=== PATIENT | female | born 1960 | race Caucasian/White ===

== ENCOUNTER 2017-11-04 05:05 | Emergency (ER) | payer BC, OTHER ==
[~2017-11-04] VITALS: Ht 162.6 cm; Wt 64.4 kg
[~2017-11-04 05:05] MED LIST: CIPR500T94 PO; LEVO25TA4 PO; LEVO88TA4 PO; METR70GE2 VG; OMEP20CA9 PO
--- NOTE | 2017-11-04 05:37 | PHYS DOC ---
Text Departure Time of Disposition: 07:30 (LISA DASH MD) Disposition: 01 HOME, SELF-CARE Condition: IMPROVED Patient Instructions: Abdominal Pain, Constipation, Adult Prescriptions Zofran, Ibuprofen (LISA DASH MD) General Chief Complaint: ABDOMINAL PAIN Stated Complaint: ABDOMINAL PAIN Time Seen by MD: 05:16 Source: patient, old records Exam Limitations: no limitations Problems: (GURINDER CONNELLY DO) Time Seen by MD: 06:17 Problems: (LISA DASH MD) History of Present Illness Initial Comments Patient is a 57-year-old female who comes to the ED complaining of abdominal pain. Patient has history of gastroparesis, diverticulitis, hiatal hernia, fatty liver she follows with Dr. Can HUDSON and Dr. Rojas as PCP. Patient states that yesterday afternoon she noticed left upper quadrant and left sided abdominal pain described as sharp and crampy 5 on a pain scale with some nausea no emesis worse with standing no relieving factors known. No associated fever chills sweats or myalgias, her last by mouth intake was yesterday around noon she had a hot dog her last bowel movement was Tuesday she does struggle with chronic constipation. She states that she feels as if she is bloated over her abdomen is swelling, she has no history of abdominal surgical procedures and states that her last colonoscopy was 3 years ago and denies any abnormal or pathological findings. No recent travel or bad food exposure. No recent stool changes such as smaller caliber, darkened or tarry stools, and no unexplained weight loss. ED vital signs are stable and she is refusing any narcotic pain medications at this time. She denies any excess NSAID intake and is a nonuser of ethanol. Labs, a normal saline IV bolus, Reglan, and CT evaluation initiated. Timing/Duration: 24 hours Severity: moderate Modifying Factors: worse with eating, worse with movement Associated Symptoms: nausea/vomiting, other (GURINDER CONNELLY DO) Allergies: Coded Allergies: No Known Drug Allergies (Unverified , 12/26/13) Past Medical History Medical History: GERD, other (gastroparesis, diverticulitis, fatty liver, hiatal hernia, "gallbladder disease") Surgical History: other (tubal ligation) (GURINDER CONNELLY DO) Social History Smoker: less than 1 pack/day Alcohol: none Drugs: none (GURINDER CONNELLY DO) Review of Systems Constitutional: denies chills, denies diaphoresis, denies fever, denies malaise Respiratory: denies cough, denies shortness of breath, denies wheezing Cardiovascular: denies chest pain, denies palpitations, denies syncope Gastrointestinal: see HPI, abdominal pain, constipation, denies diarrhea, nausea, denies vomiting Genitourinary: denies discharge, denies dysuria, denies frequency, denies hematuria Musculoskeletal: denies back pain, denies joint swelling, denies neck pain Psychiatric/Neurological: denies headache, denies numbness, denies paresthesia Hematologic/Lymphatic: denies blood clots, denies easy bleeding, denies easy bruising (GURINDER CONNELLY DO) Physical Exam General Appearance: WD/WN, no apparent distress Ear, Nose, Throat: hearing grossly normal, normal ENT inspection, normal pharynx Neck: non-tender, supple Respiratory: chest non-tender, normal breath sounds, no respiratory distress Cardiovascular: normal peripheral pulses, regular rate, rhythm Gastrointestinal: soft (nondistended, epigastric and left-sided abdominal tenderness without rebound guarding or masses, bowel sounds diminished negative Ball negative McBurney) Rectal: deferred Back: no CVA tenderness, no vertebral tenderness Extremities: non-tender, normal inspection 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 Patient signed out to Dr. Dash, see her documentation for results and patient ultimate disposition. (GURINDER CONNELLY DO) Orders, Labs, Meds EKG at 06 total showed normal sinus rhythm at rate of [address] and T- wave abnormality Labs and CT of abdomen and pelvis was unremarkable except for hiatal hernia. Patient currently taking Nexium. Patient felt better after treatment in ER. Plan discharge patient home to diagnose of epigastric pain and nausea and prescription of Zofran. Patient wants prescription of ibuprofen for her pain. (LISA DASH MD) GURINDER CONNELLY DO Nov 04, 2017 05:37 LISA DASH MD Nov 04, 2017 07:33
[2017-11-04] MEDS ORDERED: IOHEXOL 240 MG/ML 50ML VIAL. ONE (05:41)
[2017-11-04 05:53] LABS: BASO # 0.1 x10^3/uL (0.0-0.2); BASO % 1 % (0-3); EOS # 0.1 x10^3/uL (0.0-0.7); EOS % 1 % (0-3); HEMATOCRIT 38.8 % (36.0-47.0); HEMOGLOBIN 12.9 g/dL (12.0-15.5); LYMPH # 1.6 x10^3/uL (1.0-4.8); LYMPH % 21 % (24-48); MEAN CORPUSCULAR HEMOGLOBIN 29 pg (25-35); MEAN CORPUSCULAR HGB CONC 33 g/dL (31-37); MEAN CORPUSCULAR VOLUME 87 fL (79-100); MONO # 0.3 x10^3/uL (0.0-1.1); MONO % 4 % (0-9); NEUT # 5.5 x10^3uL (1.8-7.7); NEUT % 73 % (31-73); PLATELET COUNT 269 x10^3/uL (140-400); RED BLOOD COUNT 4.46 x10^6/uL (3.50-5.40); WHITE BLOOD COUNT 7.6 x10^3/uL (4.0-11.0)
[2017-11-04 05:56] LABS: BACTERIA,URINE 0 /HPF (0-FEW); BILIRUBIN,URINE NEG (NEG); CLARITY,URINE CLEAR; COLOR,URINE YELLOW; GLUCOSE,URINE NEG (NEG); NITRITE,URINE NEG (NEG); RBC,URINE 0 /HPF (0-2); SQUAMOUS EPITHELIAL CELL,UR FEW /LPF; UROBILINOGEN,URINE 0.2 mg/dL (0.2 mg/dL); WBC,URINE OCC /HPF (0-4)
[2017-11-04] MEDS: IV NORMAL SALINE 1,000ML 1,000 ML IV SCH (05:56)
[2017-11-04] MEDS: METOCLOPRAMIDE 10 MG TABLET PO ONE (05:56)
[2017-11-04] MEDS: KETOROLAC 30 MG/ML VIAL. IV ONE (05:56)
[2017-11-04 06:05] LABS: ALBUMIN 3.5 g/dL (3.4-5.0); ALBUMIN/GLOBULIN RATIO 0.9 (1.0-1.7); CALCIUM 9.3 mg/dL (8.5-10.1); CREATININE 0.8 mg/dL (0.6-1.0); GFR 73.9; POTASSIUM 3.9 mmol/L (3.5-5.1); TOTAL BILIRUBIN 0.3 mg/dL (0.2-1.0); TOTAL PROTEIN 7.3 g/dL (6.4-8.2)
[2017-11-04] MEDS ORDERED: CONTRAST GIVEN MC PRN (06:45)
[2017-11-04] MEDS: IOHEXOL 300 MG/ML 75 ML VIAL. IV ONE (06:49)
--- NOTE | 2017-11-04 06:59 | EKG ---
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
--- NOTE | 2017-11-04 07:13 | RAD ---
PQRS Compliance Statement: One or more of the following individualized dose reduction techniques were utilized for this examination: 1. Automated exposure control 2. Adjustment of the mA and/or kV according to patient size 3. Use of iterative reconstruction technique CT ABD PELV W/ORAL IV CONTRAST Clinical Indication: LEFT SIDE ABDOMINAL PAIN, HX OF DIVERTICILITIS AND GASTROPARESIS Comparison: CT abdomen and pelvis without contrast June 02, 2015. Technique: Helical CT imaging of the abdomen and pelvis is performed after 75 cc Omnipaque 300 IV contrast. Oral contrast also given. Findings: Moderate-sized hiatal hernia. Cardiac size normal. Minimal compressive atelectasis in the medial left lower lobe adjacent to the hiatal hernia. Tiny calcified granuloma in the lingula. Lung bases otherwise clear. Liver, gallbladder, spleen, and adrenal glands are normal. Fatty replacement in the pancreas head is unchanged. No peripancreatic inflammation. Abdominal aorta is normal in caliber. There is mild bilateral pelviectasis. There is no ureteral calculus. Appearance may be due to distended urinary bladder. Urinary bladder is not thick-walled. No perinephric stranding. No dilated small bowel. Distal colon diverticulosis. No colon wall thickening. The appendix diameter is upper limits of normal but there is no periappendiceal inflammation. There is no abdominal adenopathy or free fluid. Uterus and ovaries unremarkable. No pelvic free fluid. There is minimal grade 1 anterolisthesis of L4 on L5. IMPRESSION: 1. No acute abdominal or pelvic abnormality. 2. Distal colon diverticulosis without diverticulitis. 3. Mild bilateral pelviectasis may be due to urinary bladder distention. No ureteral calculus. 4. Moderate-sized hiatal hernia. Electronically signed by: Seamus Brown MD (11/04/2017 7:09 AM) [facility]
[2017-11-04 07:27] VITALS: BP 132/78
[2017-11-04] MEDS ORDERED: IBUP800T19 PO (07:34)
[2017-11-04] MEDS ORDERED: ONDA4TAB10 SL (07:34)
== END 2017-11-04 07:40 | disposition home or self-care (01) ==
LOC: ER 05:05
DX: K59.09 Other constipation (principal); R10.12 Left upper quadrant pain; K21.9 Gastro-esophageal reflux disease without esophagitis; F17.200 Nicotine dependence, unspecified, uncomplicated; Z98.51 Tubal ligation status
CPT/HCPCS: 36415; 74177; 80053; 81001; 83690; 84484; 85025; 93005; 96361; 96374; 99285; J1885; J8597; Q9967; J7030

== ENCOUNTER 2017-12-07 06:35 | Observation (INO) | payer BC ==
[~2017-12-07] VITALS: Ht 162.6 cm; Wt 65.1 kg
[~2017-12-07 06:35] MED LIST changes: +IBUP800T19 PO; +ONDA4TAB10 SL
[2017-12-07] MEDS ORDERED: IV NORMAL SALINE 1,000ML 1,000 ML IV ONE (07:00)
--- NOTE | 2017-12-07 07:01 | PHYS DOC ---
Past History Past Medical History: Diverticulitis, Other Past Surgical History: Tubal ligation Smoking: Non-smoker Alcohol Use: Occasionally Drug Use: Marijuana Adult General Chief Complaint Chief Complaint: SYNCOPE HPI HPI 57-year-old female patient states she was standing at work and had one episode of hot flashes that last longer than her usual and she felt dizzy and sat down and does not remember anything more. Patient's coworker stated she was shaking and had loss of consciousness and they hold her without having a fall. Patient was unconscious for a few seconds and then back to her normal condition. Patient had one episode of vomiting. Patient denies chest pain, palpitation, shortness of breath, focal neuro deficits before or after her syncope and denies history of previous episodes of syncope. Patient states she had one episodes of coffee-ground material vomiting 4 days ago and seen by her GI doctor with concern for bleeding ulcer and has appointment for EGD next week. Review of Systems Review of Systems Constitutional: Denies fever or chills [] Eyes: Denies change in visual acuity, redness, or eye pain [] HENT: Denies nasal congestion or sore throat [] Respiratory: Denies cough or shortness of breath [] Cardiovascular: No additional information not addressed in HPI [] GI: Denies abdominal pain, nausea, vomiting, bloody stools or diarrhea [] : Denies dysuria or hematuria [] Musculoskeletal: Denies back pain or joint pain [] Integument: Denies rash or skin lesions [] Neurologic: Denies headache, focal weakness or sensory changes , reports dizziness[] Endocrine: Denies polyuria or polydipsia [] All other systems were reviewed and found to be within normal limits, except as documented in this note. Allergies Allergies Allergies Coded Allergies Type Severity Reaction Last Updated Verified No Known Drug Allergies 12/26/13 No Physical Exam Physical Exam Constitutional: Well developed, well nourished, mild distress, non-toxic appearance. [] HENT: Normocephalic, atraumatic, bilateral external ears normal, oropharynx dry , no oral exudates, nose normal. [] Eyes: PERRLA, EOMI, conjunctiva normal, no discharge. [] Neck: Normal range of motion, no tenderness, supple, no stridor. [] Cardiovascular:Heart rate regular rhythm, no murmur [] Lungs & Thorax: Bilateral breath sounds clear to auscultation [] Abdomen: Bowel sounds normal, soft, no tenderness, no masses, no pulsatile masses. [] Skin: Warm, dry, no erythema, no rash. [] Back: No tenderness, no CVA tenderness. [] Extremities: No tenderness, no cyanosis, no clubbing, ROM intact, no edema. [] Neurologic: Alert and oriented X 3, normal motor function, normal sensory function, no focal deficits noted. [] Psychologic: Affect normal, judgement normal, mood normal. [] EKG EKG EKG interpreted by me. EKG at 06.5 showed normal sinus rhythm at rate of 82, no acute ST and T wave abnormality, Q waves in inferior leads.[] Radiology/Procedures Radiology/Procedures [] [address] [address] IMAGING REPORT Signed PATIENT: GHADA AGUILA ACCOUNT: [id number] : 1960 LOCATION: ER AGE: 57 SEX: F EXAM STATUS: REG ER ORD. PHYSICIAN: LISA DASH MD REASON: syncopal PROCEDURE: CT HEAD WO CONTRAST Indication: Syncopal episode this morning. Hypotension. Technique: Noncontrast CT head was obtained. No comparison is available. One or more of the following individualized dose reduction techniques were utilized for this examination: 1. Automated exposure control 2. Adjustment of the mA and/or kV according to patient size 3. Use of iterative reconstruction technique Findings: The ventricles are normal in size and configuration for age. There is no acute intracranial hemorrhage or extra-axial fluid collection. There is no mass effect or midline shift. Gregory-white differentiation is preserved. The included paranasal sinuses and mastoid air cells are clear. There is no depressed skull fracture. IMPRESSION: No acute intracranial findings. Electronically signed by: Anand Patiño MD (12/07/2017 7:23 AM) [facility] DICTATED AND SIGNED BY: ANAND PATIÑO MD DATE: 12/07/17 0719 CC: INEZ MARSHALL MD; LISA DASH MD ~ Course & Med Decision Making Course & Med Decision Making Pertinent Labs and Imaging studies reviewed. (See chart for details) Patient in ER showed 57-year-old female patient with new onset syncope. Patient had orthostatic hypertension and felt better with IV fluid. CT head and labs was unremarkable. Patient had 1 episodes of hematemesis 4 days ago and has an appointment with GI specialist next week for EGD. Patient had hemoglobin of 12.9 in October and today had hemoglobin of 12.2. UA result is pending. Plan to admit patient with diagnosis of syncope. Dr. Ceja was consulted and accepted admission. Patient informed about plan of care and test results. Dragon Disclaimer Dragon Disclaimer This electronic medical record was generated, in whole or in part, using a voice recognition dictation system. Departure Departure: Impression: Primary Impression: Syncope Additional Impression: Orthostatic hypotension Disposition: ADMITTED INPATIENT (At 0820) Admitting Physician: Arabella Ceja Condition: IMPROVED Referrals: INEZ MARSHALL MD (PCP) Problem Qualifiers LISA DASH MD Dec 07, 2017 07:01
--- NOTE | 2017-12-07 07:15 | RAD ---
AP chest, 12/07/2017: History: Syncope, hypotension The heart size is normal. There is a moderate-sized hiatal hernia. The pulmonary vascularity is within normal limits. No pulmonary infiltrates are seen. There is no evidence of pleural fluid. IMPRESSION: 1. Moderate sized hiatal hernia. 2. No acute cardiopulmonary abnormality is detected.
--- NOTE | 2017-12-07 07:21 | EKG ---
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
[2017-12-07 07:23] LABS: BASO % 0 % (0-3); EOS # 0.1 x10^3/uL (0.0-0.7); EOS % 1 % (0-3); HEMATOCRIT 36.7 % (36.0-47.0); HEMOGLOBIN 12.2 g/dL (12.0-15.5); LYMPH # 2.7 x10^3/uL (1.0-4.8); LYMPH % 33 % (24-48); MEAN CORPUSCULAR HEMOGLOBIN 28 pg (25-35); MEAN CORPUSCULAR HGB CONC 33 g/dL (31-37); MEAN CORPUSCULAR VOLUME 85 fL (79-100); MONO # 0.4 x10^3/uL (0.0-1.1); MONO % 5 % (0-9); NEUT % 62 % (31-73); PLATELET COUNT 319 x10^3/uL (140-400); RED BLOOD COUNT 4.32 x10^6/uL (3.50-5.40); RED CELL DISTRIBUTION WIDTH 14.8 % (11.5-14.5); WHITE BLOOD COUNT 8.1 x10^3/uL (4.0-11.0)
--- NOTE | 2017-12-07 07:26 | RAD ---
Indication: Syncopal episode this morning. Hypotension. Technique: Noncontrast CT head was obtained. No comparison is available. One or more of the following individualized dose reduction techniques were utilized for this examination: 1. Automated exposure control 2. Adjustment of the mA and/or kV according to patient size 3. Use of iterative reconstruction technique Findings: The ventricles are normal in size and configuration for age. There is no acute intracranial hemorrhage or extra-axial fluid collection. There is no mass effect or midline shift. Gregory-white differentiation is preserved. The included paranasal sinuses and mastoid air cells are clear. There is no depressed skull fracture. IMPRESSION: No acute intracranial findings. Electronically signed by: Anand Patiño MD (12/07/2017 7:23 AM) [facility]
[2017-12-07 07:42] LABS: ALBUMIN 3.6 g/dL (3.4-5.0); ALK PHOS 85 U/L (46-116); ALT (SGPT) 19 U/L (14-59); ANION GAP 10 (6-14); AST (SGOT) 19 U/L (15-37); BLOOD UREA NITROGEN 14 mg/dL (7-20); BUN/CREATININE RATIO 13 (6-20); CALCIUM 9.3 mg/dL (8.5-10.1); CARBON DIOXIDE 27 mmol/L (21-32); CHLORIDE 104 mmol/L (98-107); CREATININE 1.1 mg/dL (0.6-1.0); GFR 51.2; GLUCOSE 133 mg/dL (70-99); MAGNESIUM 1.9 mg/dL (1.8-2.4); POTASSIUM 3.4 mmol/L (3.5-5.1); SODIUM 141 mmol/L (136-145); TOTAL BILIRUBIN 0.5 mg/dL (0.2-1.0); TOTAL PROTEIN 7.3 g/dL (6.4-8.2)
[2017-12-07 08:24] LABS: BACTERIA,URINE FEW /HPF (0-FEW); BILIRUBIN,URINE NEG (NEG); CLARITY,URINE HAZY; COLOR,URINE AMBER; GLUCOSE,URINE NEG (NEG); NITRITE,URINE NEG (NEG); UROBILINOGEN,URINE 1 mg/dL (0.2 mg/dL)
[2017-12-07 08:25] LABS: AMORPHOUS SEDIMENT,UR PRESENT /HPF; HYALINE CASTS, URINE MANY /HPF; SQUAMOUS EPITHELIAL CELL,UR FEW /LPF
[2017-12-07 09:30] VITALS: BP 128/82
[2017-12-07] MEDS ORDERED: POTASSIUM CHLORIDE 20 MEQ TABLET.ER. PO ONE (10:00)
[2017-12-07 10:28] VITALS: BP_SYST 126; BP_SYST 137; BP_DIAS 77; BP_DIAS 78
[2017-12-07 10:29] VITALS: BP 126/79
[2017-12-07] MEDS: IV NORMAL SALINE 1,000ML 1,000 ML IV SCH ×2 (11:05→17:22)
--- NOTE | 2017-12-07 15:01 | HP ---
ADMIT DATE: 12/07/2017 REASON FOR ADMISSION: Possible seizure. HISTORY OF PRESENT ILLNESS: This is a 57-year-old female who has not been feeling well for the last few days and has had very little to eat or drink in the last couple of days. As a matter of fact, she pretty much only had some broth and crackers Tuesday and Tuesday. She did feel fine this morning she states and went to work where she works at [employer]. She was moving hands, which was somewhat exertional. She got overheated. She felt short of breath. She also felt hot and sweaty and lightheaded. She was able to get herself back over to her own area where her team was where she sat on a bucket on the stairs. She sat on portable stairs and was holding on to the rail there and her boss was standing there and prevented her from falling, but she did evidently passed out and boss stated that she had some type of seizure where she also threw up and had some slight bladder loss. Boss tried to open up her mouth and her jaws were clenched. When she woke up, she knew where she was, but was a little bit foggy. She did have some headaches. Denied blurred vision. PAST MEDICAL HISTORY: Gastroparesis, hiatal hernia, Yassine's thyroiditis, possible bleeding ulcers. She is scheduled for an EGD on Tuesday. MEDICATIONS: Levothyroxine 50 mcg daily and was started on Prilosec 20 mg yesterday. She has hyperlipidemia but is not taking any cholesterol medication because of the cost. ALLERGIES: None. SOCIAL HISTORY: Works at [employer], does smoke and has smoked 1/2-3/4 of a pack per day since she was in her 40s. FAMILY HISTORY: Mother is alive at 82. Father at 57 of a massive heart attack. REVIEW OF SYSTEMS: Positive for generally not feeling well since last some day, some problems with being sick to her stomach, threw up some type of black material, also intermittent shortness of breath. Weight has been stable. Denies sore throat or fever. OBJECTIVE: VITAL SIGNS: Blood pressure is 106/72, pulse 80, respirations 17, pulse ox 98% on room air. Orthostatics: Lying 137/77, sitting 126/78, standing 126/79, pulse increased slightly from 76 to 93. HEENT: The patient's hearing is normal. Pupils were equal, round, and reactive to light. Extraocular muscles were intact. There was no nystagmus. Her nose was patent. Her throat was clear. Tongue was moist. NECK: Supple without adenopathy. There were no carotid bruits. LUNGS: Clear to auscultation. CARDIOVASCULAR: Regular rhythm and rate. ABDOMEN: Soft, nontender. EXTREMITIES: Without edema. NEUROLOGIC: Cranial nerves were intact. Specimen Processor strength was intact. [id number], rapid alternating movement normal. LABORATORY DATA: Normal CBC. Chemistry slightly low potassium of 3.4, creatinine is 1.1. Troponins negative x 2. Urinalysis, specific gravity 1.020, trace ketones, 1-[address] of the head is negative. ASSESSMENT: 1. Possible seizure 2. Dehydration. 3. Poor p.o. intake last 3 days. 4. Gastroparesis. 5. Hyperlipidemia. 6. Yassine's thyroiditis. 7. Possible duodenal or gastric ulcer. 8. Tobacco use disorder. PLAN: Hemoccult stools, IV fluids, Cardiology consult, Neurology consult, EEG ordered. ИРИНА ECHEVARRIA DO DR: JOSSELYN/kate JOB#: [id number] / [id number]
[2017-12-07 15:23] VITALS: BP 110/73
--- NOTE | 2017-12-07 16:37 | CARD ---
MR#: [id number] Date of Study: 12/07/2017 Ordering Physician: RAYSA BOBO, Referring Physician: ИРИНА ECHEVARRIA Tech: ROYAL Mccormick APPROVED REPORT EXAM: Two-dimensional and M-mode echocardiogram with Doppler and color Doppler. Other Information Quality : GoodHR: 85bpm INDICATION Syncope 2D DIMENSIONS Left Atrium(2D)2.5 (1.6-4.0cm)IVSd1.1 (0.7-1.1cm) Aortic Root(2D)3.2 (2.0-3.7cm)LVDd3.9 (3.9-5.9cm) LVOT Diameter1.9 (1.8-2.4cm)PWd1.3 (0.7-1.1cm) LVDs2.4 (2.5-4.0cm)FS (%) 38.0 % SV45.6 mlLVEF(%)68.9 (>50%) Aortic Valve AoV Peak Carlos.186.2cm/sAoV VTI36.4cm AO Peak GR.13.9mmHgLVOT Peak Carlos.126.1cm/s LVOT VTI 24.70cmAO Mean GR.7mmHg NICOLETTE (VMAX)1.94oe3GNC (VTI)1.98cm2 Mitral Valve MV E Wkdflwio574.6cm/sMV DECEL [id number] MV A Tidaonlz542.5cm/sE/A Ratio0.9 Pulmonary Vein S1 Eoxxxbkb62.6cm/sD2 Ohlpuguq13.0cm/s LEFT VENTRICLE The left ventricle is normal size. There is normal left ventricular wall thickness. The left ventricu lar systolic function is normal. The ejection fraction is 60-65%. There is normal LV segmental wall m otion. The left ventricular diastolic function and filling is normal for age. No left ventricle throm bus noted on this study. RIGHT VENTRICLE The right ventricle is normal size. The right ventricular systolic function is normal. ATRIA The left atrium size is normal. The right atrium size is normal. The interatrial septum is intact wit h no evidence for an atrial septal defect or patent foramen ovale as noted on 2-D or Doppler imaging. AORTIC VALVE The aortic valve is thickened but opens well. Doppler and Color Flow revealed no significant aortic r egurgitation. There is no significant aortic valvular stenosis. There is no aortic valvular vegetatio n. MITRAL VALVE The mitral valve is thickened but opens well. There is no evidence of mitral valve prolapse. There is no mitral valve stenosis. Doppler and Color Flow revealed no mitral valve regurgitation noted. TRICUSPID VALVE The tricuspid valve is normal in structure and function. Doppler and Color Flow revealed no tricuspid valve regurgitation noted. There is no tricuspid valve prolapse or vegetation. There is no tricuspid valve stenosis. PULMONIC VALVE The pulmonic valve is not well visualized. Doppler and Color Flow revealed no pulmonic valvular regur gitation. There is no pulmonic valvular stenosis. GREAT VESSELS The aortic root is normal in size. The IVC is normal in size and collapses >50% with inspiration. PERICARDIAL EFFUSION There is no pleural effusion. There is no evidence of significant pericardial effusion. Critical Notification Critical Value: No <Conclusion> The left ventricle is normal size. The left ventricular systolic function is normal. The ejection fraction is 60-65%. There is no significant aortic valvular stenosis. Doppler and Color Flow revealed no significant aortic regurgitation. Doppler and Color Flow revealed no mitral valve regurgitation noted. Doppler and Color Flow revealed no tricuspid valve regurgitation noted. Signed by : Abhishek Olson MD Electronically Approved : 12/07/2017 16:36:30
[2017-12-07 17:29] LABS: FREE T4 1.32 ng/dL (0.76-1.46); THYROID STIM HORMONE (TSH) 2.162 uIU/mL (0.358-3.740)
[2017-12-07] MEDS ORDERED: PANTOPRAZOLE 40 MG TABLET. PO ONE (17:30)
[2017-12-07 21:54] VITALS: BP 121/70
[2017-12-08 00:53] VITALS: BP 105/62
[2017-12-08 05:22] VITALS: BP 110/56
[2017-12-08] MEDS ORDERED: LEVOTHYROXINE 50 MCG TABLET PO SCH (06:00)
[2017-12-08 06:55] LABS: BASO # 0.1 x10^3/uL (0.0-0.2); BASO % 1 % (0-3); EOS # 0.1 x10^3/uL (0.0-0.7); EOS % 2 % (0-3); HEMATOCRIT 31.9 % (36.0-47.0); HEMOGLOBIN 10.5 g/dL (12.0-15.5); LYMPH # 2.8 x10^3/uL (1.0-4.8); LYMPH % 45 % (24-48); MEAN CORPUSCULAR HEMOGLOBIN 28 pg (25-35); MEAN CORPUSCULAR HGB CONC 33 g/dL (31-37); MEAN CORPUSCULAR VOLUME 85 fL (79-100); MONO # 0.4 x10^3/uL (0.0-1.1); MONO % 6 % (0-9); NEUT # 2.8 x10^3uL (1.8-7.7); NEUT % 45 % (31-73); PLATELET COUNT 241 x10^3/uL (140-400); RED BLOOD COUNT 3.75 x10^6/uL (3.50-5.40); WHITE BLOOD COUNT 6.2 x10^3/uL (4.0-11.0)
[2017-12-08 07:11] LABS: ALBUMIN 3.1 g/dL (3.4-5.0); CALCIUM 8.7 mg/dL (8.5-10.1); CREATININE 0.9 mg/dL (0.6-1.0); GFR 64.5; MAGNESIUM 1.8 mg/dL (1.8-2.4); POTASSIUM 3.8 mmol/L (3.5-5.1); TOTAL BILIRUBIN 0.4 mg/dL (0.2-1.0); TOTAL PROTEIN 6.2 g/dL (6.4-8.2)
[2017-12-08] MEDS ORDERED: PANTOPRAZOLE 40 MG TABLET. PO SCH (08:00)
--- NOTE | 2017-12-08 08:42 | CONS ---
DATE OF CONSULTATION: 12/07/2017 REFERRING PHYSICIAN: Dr. Ceja. REASON FOR CONSULTATION: Syncope versus seizure. HISTORY OF PRESENT ILLNESS: This is a 57-year-old right-handed white female who was admitted through Emergency Room after she had a spell at work this morning, described as a brief passing out and possible fainting. According to the patient, she has not been feeling well in the last 2 days and her oral intake has been poor. However, she has had menopause, hot flashes and today she had 1 at work, but it was longer. She became very tired and unable to stand. She sat and all of a sudden, she passed out and lost consciousness for approximately 2 minutes. The patient woke up, came to, but she was slightly foggy and she had witnessed some convulsions and clenching of her jaws. The patient did not recall the event, but when she came to, she was alert and oriented. She has not had recurrent spells since admission. Currently, the patient denies headaches, visual disturbances, nausea, vomiting, chest pain, shortness of breath or palpitation, dysarthria, dysphagia. However, the patient did have a possible coffee-ground vomiting yesterday. 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 PAST MEDICAL HISTORY: Significant for gastroparesis and possible gastric ulcer, Yassine thyroiditis, hiatal hernia, hypothyroidism, and hyperlipidemia. SOCIAL HISTORY: The patient works at [employer]. She smokes 3/4 pack of cigarettes daily. She denies alcohol drinking or illicit drug use. She is . CURRENT HOME MEDICATIONS: Levothyroxine 50 mcg daily and Prilosec 20 mg daily. ALLERGIES: No known drug allergies. REVIEW OF SYSTEMS: His 10-point review of system was performed and as above in history of present illness, otherwise unremarkable. PHYSICAL EXAMINATION: GENERAL: Well-developed, well-nourished white female, not in acute distress. She weighs 139 pounds. VITAL SIGNS: Blood pressure 110/73, respiratory 20, pulse is 75, temperature 97.9, oxygen saturation 97% on room air. HEENT: Normocephalic, atraumatic, otherwise unremarkable. NECK: Supple. Negative for carotid bruit, lymphadenopathy or thyromegaly. LUNGS: Clear to A and P. CARDIOVASCULAR: Regular rate and rhythm, normal S1, S2. There is no S3, S4, or murmur. ABDOMEN: Soft. Bowel sounds positive. EXTREMITIES: Negative for cyanosis, clubbing or pitting edema. NEUROLOGIC: Mental status: The patient is alert and oriented x 3. Speech is fluent. There is no language dysfunction. Memory, judgment, and abstract thinking are normal. The patient denies hallucination or delusion. Cranial nerves: Visual peñaloza are full. The pupils are reactive to light and accommodation. The extraocular movements are intact. There is no nystagmus. There is no facial motor or sensory deficit. Hearing is intact bilaterally. The palate is elevated symmetrically. Sternocleidomastoid muscles are powerful bilaterally. The patient shrugs her shoulders symmetrically, protrudes her tongue in the midline without fasciculation or atrophy. Motor: No focal muscle bulk was seen. The tone was normal. The strength was 5/5 throughout. Sensory examination revealed normal pinprick, light touch, vibratory and position senses. Deep tendon reflexes were symmetric and active without pathology responses. Gait and coordination are normal. RADIOLOGICAL DATA: Head CT scan reveal no acute intracranial process, otherwise unremarkable. Chest x-ray revealed a moderate-sized hiatal hernia, otherwise an unremarkable. LABORATORY DATA: CBC revealed white blood cells of 8.1, hemoglobin 12.2, hematocrit 36.7, platelet count 319,000. Chemistry revealed sodium of 141, potassium 3.4, chloride 104, CO2 of 27, BUN 14, creatinine 1.1, glucose 133, magnesium 1.9, calcium 9.3. Liver enzymes are normal. Troponin level less than 0.017. Cardiac enzymes otherwise normal. TSH and T4 are within normal range. DIAGNOSTIC DATA: Echocardiogram was performed and revealed normal left ventricular systolic function with ejection fraction of 60-65%, otherwise unremarkable. EKG normal sinus rhythm at a rate of 82. Otherwise, no acute changes. IMPRESSION: 1. Syncope versus seizure. 2. Dehydration. 3. Multiple medical problems including gastroparesis, rule out gastric or duodenal ulcers, hyperlipidemia, Yassine's thyroiditis, tobaccoism. RECOMMENDATIONS: 1. Continue with IV fluid and home medications. 2. The patient has been scheduled for an upper EGD next week. 3. Await the EEG to rule out a seizure. M Tonie ORTEGA MD DR: NIDHI/kate JOB#: [id number] / [id number]
--- NOTE | 2017-12-08 10:04 | PDOC ---
PROGRESS NOTES Diagnosis Problem Problems Medical Problems: (1) Orthostatic hypotension Status: Acute (2) Syncope Status: Acute Assessment Problems Medical Problems: (1) Orthostatic hypotension Status: Acute (2) Syncope Status: Acute 1. syncope vs seizure - neuro following, outpatient EEG. No arrhythmias, normal Echo. 2. dehydration - improved with IVF 3. orthostatic hypotension - resolved with IVF Problems: Subjective feels much better, no chest pain, no dyspnea, no palpitations, no lightheadedness or syncope, "ready to go home" Objective Vital Signs Date Time Temp Pulse Resp B/P (MAP) Pulse Ox O2 Delivery O2 Flow Rate FiO2 12/08/17 05:22 98.0 73 20 110/56 (74) 98 Room Air 12/07/17 10:28 97.0 Intake and Output 12/08/17 07:00 Intake Total 2320 ml Output Total 200 ml Balance 2120 ml Intake Oral 1320 ml IV Total 1000 ml Output Urine Total 200 ml # Voids 4 Abdomen: Normal bowel sounds, Soft, No tenderness Heart: Regular rate, Normal S1, Normal S2, No murmurs Extremities: No cyanosis, No edema, Normal pulses General: Alert, Oriented X3, Cooperative, No acute distress HEENT: Atraumatic, EOMI Lungs: Clear to auscultation, Normal air movement Neuro: Normal speech, Strength at 5/5 X4 ext Psych/Mental Status: Mental status NL, Mood NL Review of Relevant I have reviewed the following items dandre (where applicable) has been applied. Labs Laboratory Tests Test 12/07/17 07:04 12/07/17 07:56 12/07/17 11:29 12/07/17 14:25 White Blood Count 8.1 x10^3/uL (4.0-11.0) Red Blood Count 4.32 x10^6/uL (3.50-5.40) Hemoglobin 12.2 g/dL (12.0-15.5) Hematocrit 36.7 % (36.0-47.0) Mean Corpuscular Volume 85 fL (79-100) Mean Corpuscular Hemoglobin 28 pg (25-35) Mean Corpuscular Hemoglobin Concent 33 g/dL (31-37) Red Cell Distribution Width 14.8 % (11.5-14.5) Platelet Count 319 x10^3/uL (140-400) Neutrophils (%) (Auto) 62 % (31-73) Lymphocytes (%) (Auto) 33 % (24-48) Monocytes (%) (Auto) 5 % (0-9) Eosinophils (%) (Auto) 1 % (0-3) Basophils (%) (Auto) 0 % (0-3) Neutrophils # (Auto) 5.0 x10^3uL (1.8-7.7) Lymphocytes # (Auto) 2.7 x10^3/uL (1.0-4.8) Monocytes # (Auto) 0.4 x10^3/uL (0.0-1.1) Eosinophils # (Auto) 0.1 x10^3/uL (0.0-0.7) Basophils # (Auto) 0.0 x10^3/uL (0.0-0.2) Prothrombin Time 10.4 SEC (9.4-11.4) Prothromb Time International Ratio 1.0 (0.9-1.1) Sodium Level 141 mmol/L (136-145) Potassium Level 3.4 mmol/L (3.5-5.1) Chloride Level 104 mmol/L (98-107) Carbon Dioxide Level 27 mmol/L (21-32) Anion Gap 10 (6-14) Blood Urea Nitrogen 14 mg/dL (7-20) Creatinine 1.1 mg/dL (0.6-1.0) Estimated GFR (Cockcroft-Gault) 51.2 BUN/Creatinine Ratio 13 (6-20) Glucose Level 133 mg/dL (70-99) Calcium Level 9.3 mg/dL (8.5-10.1) Magnesium Level 1.9 mg/dL (1.8-2.4) Total Bilirubin 0.5 mg/dL (0.2-1.0) Aspartate Amino Transf (AST/SGOT) 19 U/L (15-37) Alanine Aminotransferase (ALT/SGPT) 19 U/L (14-59) Alkaline Phosphatase 85 U/L (46-116) Creatine Kinase 40 U/L (26-192) Creatine Kinase MB (Mass) < 0.5 ng/mL (0.0-3.6) Creatine Kinase MB Relative Index 1.3 % (0-4) Troponin I Quantitative < 0.017 ng/mL (0-0.055) < 0.017 ng/mL (0-0.055) < 0.017 ng/mL (0-0.055) EJ-Eyr-W-Type Natriuretic Peptide 24 pg/mL (0-124) Total Protein 7.3 g/dL (6.4-8.2) Albumin 3.6 g/dL (3.4-5.0) Albumin/Globulin Ratio 1.0 (1.0-1.7) Thyroid Stimulating Hormone (TSH) 2.162 uIU/mL (0.358-3.740) Free Thyroxine 1.32 ng/dL (0.76-1.46) Urine Collection Type Unknown Urine Color [facility] Urine Clarity Hazy Urine pH 6.0 Urine Specific Coleman 1.020 Urine Protein 100 mg/dl (NEG-TRACE) Urine Glucose (UA) Neg mg/dL (NEG) Urine Ketones (Stick) Trace mg/dL (NEG) Urine Blood Neg (NEG) Urine Nitrite Neg (NEG) Urine Bilirubin Neg (NEG) Urine Urobilinogen Dipstick 1 mg/dL (0.2 mg/dL) Urine Leukocyte Esterase Neg (NEG) Urine RBC 1-2 /HPF (0-2) Urine WBC 1-4 /HPF (0-4) Urine Squamous Epithelial Cells Few /LPF Urine Transitional Epithelial Cells Mod /LPF Urine Amorphous Sediment Present /HPF Urine Bacteria Few /HPF (0-FEW) Urine Hyaline Casts Many /HPF Urine Mucus Slight /LPF Test 12/08/17 06:33 White Blood Count 6.2 x10^3/uL (4.0-11.0) Red Blood Count 3.75 x10^6/uL (3.50-5.40) Hemoglobin 10.5 g/dL (12.0-15.5) Hematocrit 31.9 % (36.0-47.0) Mean Corpuscular Volume 85 fL (79-100) Mean Corpuscular Hemoglobin 28 pg (25-35) Mean Corpuscular Hemoglobin Concent 33 g/dL (31-37) Red Cell Distribution Width 15.0 % (11.5-14.5) Platelet Count 241 x10^3/uL (140-400) Neutrophils (%) (Auto) 45 % (31-73) Lymphocytes (%) (Auto) 45 % (24-48) Monocytes (%) (Auto) 6 % (0-9) Eosinophils (%) (Auto) 2 % (0-3) Basophils (%) (Auto) 1 % (0-3) Neutrophils # (Auto) 2.8 x10^3uL (1.8-7.7) Lymphocytes # (Auto) 2.8 x10^3/uL (1.0-4.8) Monocytes # (Auto) 0.4 x10^3/uL (0.0-1.1) Eosinophils # (Auto) 0.1 x10^3/uL (0.0-0.7) Basophils # (Auto) 0.1 x10^3/uL (0.0-0.2) Sodium Level 140 mmol/L (136-145) Potassium Level 3.8 mmol/L (3.5-5.1) Chloride Level 105 mmol/L (98-107) Carbon Dioxide Level 27 mmol/L (21-32) Anion Gap 8 (6-14) Blood Urea Nitrogen 9 mg/dL (7-20) Creatinine 0.9 mg/dL (0.6-1.0) Estimated GFR (Cockcroft-Gault) 64.5 BUN/Creatinine Ratio 10 (6-20) Glucose Level 105 mg/dL (70-99) Calcium Level 8.7 mg/dL (8.5-10.1) Magnesium Level 1.8 mg/dL (1.8-2.4) Total Bilirubin 0.4 mg/dL (0.2-1.0) Aspartate Amino Transf (AST/SGOT) 16 U/L (15-37) Alanine Aminotransferase (ALT/SGPT) 15 U/L (14-59) Alkaline Phosphatase 70 U/L (46-116) Total Protein 6.2 g/dL (6.4-8.2) Albumin 3.1 g/dL (3.4-5.0) Albumin/Globulin Ratio 1.0 (1.0-1.7) Medications Current Medications Sodium Chloride 1,000 ml @ 1,000 mls/hr 1X ONCE IV Last administered on at 07:05; Start 12/07/17 at 07:00; Stop 12/07/17 at 07:59; Status DC Sodium Chloride 1,000 ml @ 100 mls/hr Q10H IV ; Start 12/07/17 at 08:22; Stop 12/07/17 at 17:22; Status DC Potassium Chloride (Klor-Con) 40 meq 1X ONCE PO Last administered on at 11:10; Start 12/07/17 at 10:00; Stop 12/07/17 at 10:02; Status DC Pantoprazole Sodium (Protonix) 40 mg 1X ONCE PO Last administered on at 17:06; Start 12/07/17 at 17:30; Stop 12/07/17 at 17:31; Status DC Levothyroxine Sodium (Synthroid) 50 mcg DAILY06 PO Last administered on at 04:58; Start 12/08/17 at 06:00 Pantoprazole Sodium (Protonix) 40 mg DAILY16 PO Last administered on 12/08/17at 07:51; Start 12/08/17 at 08:00; Stop 12/08/17 at 08:01; Status DC Pantoprazole Sodium (Protonix) 40 mg DAILY16 PO ; Start 12/09/17 at 16:00 Active Scripts Active Reported Omeprazole 20 Mg Capsule.dr 20 Mg PO DAILY16 Levothyroxine Sodium 88 Mcg Tablet 50 Mcg PO Vitals/I & O Vital Sign - Last 24 Hours 12/07/17 12/07/17 12/07/17 12/07/17 10:28 10:28 10:29 15:23 Temp 97.9 Pulse 76 78 93 76 Resp 20 B/P (MAP) 137/77 (97) 126/78 (94) 126/79 (95) 110/73 (85) Pulse Ox 99 99 97 O2 Delivery Room Air Room Air Room Air Room Air O2 Flow Rate 97.0 12/07/17 12/07/17 12/08/17 12/08/17 19:35 21:54 00:53 05:22 Temp 98.0 98.4 98.0 Pulse 86 78 73 Resp 20 18 20 B/P (MAP) 121/70 (87) 105/62 (76) 110/56 (74) Pulse Ox 98 95 98 O2 Delivery Room Air Room Air Room Air Room Air Intake and Output 12/07/17 12/07/17 12/08/17 15:00 23:00 07:00 Intake Total 1240 ml 480 ml 600 ml Output Total 200 ml Balance 1240 ml 280 ml 600 ml RAYSA BOBO APRN 1, 2018 10:04
[2017-12-08 10:32] VITALS: BP 114/56
--- NOTE | 2017-12-08 14:38 | DS ---
DATE OF DISCHARGE: 12/07/2017 HISTORY OF PRESENT ILLNESS: The patient is a 57-year-old female patient who apparently has not been feeling well for the last few days and has had very little to eat and drink in the last couple of days. As a matter of fact, she pretty much only had some broth and crackers Tuesday and Tuesday. Did feel fine on the morning of admission and she stated she went to work, she works at [employer]. She was moving hands, which was somewhat exertional. She got overheated. She felt short of breath and also felt hot and sweaty and lightheaded. She was able to get herself back over to her own area where her team was where she sat on a bucket on the stairs. She sat on a portable stairs and was holding onto the rails. Her boss was standing there and prevented her from falling, but she did eventually pass out and the boss stated that she had some type of seizure where she also threw up, had some slight bladder loss. When she woke up, she knew where she was, but was a little bit foggy. She did have some headache and denied any blurred vision. She was brought to the Emergency Room where she was basically investigated. She was found to be somewhat dehydrated and basically was admitted for possible syncopal episode versus seizure disorder. The Cardiology team as well as the Neurology team were consulted. She was investigated by the Cardiology team and was treated aggressively with IV fluid. Her dehydration improved and her orthostatic hypotension resolved. She did have an echocardiogram, which basically showed that her left ventricular size is normal. Left ventricular systolic function is normal with ejection fraction of 60% -65%. There is no significant aortic valvular stenosis, no significant aortic regurgitation, no mitral valve regurgitation or stenosis, and she was seen by Dr. Montenegro also who basically recommended to continue the IV fluid and to follow her as an outpatient to do an EEG to rule out seizure disorder. She remained hemodynamically stable, afebrile, has no further episode of syncope or seizure while here. A decision was made to discharge her home to follow with her medication. PHYSICAL EXAMINATION: GENERAL: When I examined her this afternoon, she looked well and was clearly in no apparent respiratory distress, pale, but not jaundiced, cyanosed thyromegaly. No jugular venous distension. No lower limb edema. VITAL SIGNS: Her heart rate was 84, blood pressure 114/56, temperature was 97.9, respiratory rate 20, and oxygen saturation was 96%. HEAD, EYES, EARS, NOSE, AND THROAT: Showed normocephalic, atraumatic. NECK: Supple. HEART: Showed normal first and second heart sounds with no gallop, rub, or murmur. CHEST: Clear to auscultation. No crepitation or rhonchi. ABDOMEN: Distended, soft, nontender. No guarding or rigidity. No organomegaly. All hernial orifices intact. Bowel sounds normal. NEUROLOGIC: She is awake, alert, responding appropriately. Her cranial nerves are intact. EXTREMITIES: She moves extremities without difficulty. She ambulates without assistance or assistive devices. Her intake was 2300, output was 200. LABORATORY DATA: Her lab work this morning showed her serum sodium was 140, potassium 3.8, chloride 105, bicarbonate 27, anion gap of 9, BUN is 9, creatinine also 0.9. Her estimated GFR was 64 mL per minute. Her glucose was 105, calcium was 8.7, magnesium was 1.8. Total bilirubin, AST, ALT, alkaline phosphatase were normal. Total protein was 6.2, albumin was 3.1. She has 3 sets of cardiac enzymes which were all negative and showed troponin to be less than 0.017. Her TSH was 2.162. Free T4 was 1.32. Her white cell count was 6200, hemoglobin 10, hematocrit 32, MCV 85, and platelet count of 241,000. Urinalysis was unremarkable and prothrombin time and INR were normal. DISCHARGE MEDICATIONS: She will be discharged home to continue on levothyroxine 50 mcg once a day and omeprazole 20 mg once a day. FINAL DISCHARGE DIAGNOSES: 1. Syncopal episode, likely due to dehydration and orthostatic hypotension. 2. Yassine thyroiditis with hypothyroidism. 3. Gastroesophageal reflux disease. 4. Hiatal hernia. 5. Gastroparesis. CARLOS MORENO MD DR: VERONICA/kate JOB#: [id number] / [id number]
--- NOTE | 2017-12-08 22:18 | PN ---
DATE: 12/08/2017 SUBJECTIVE: The patient denies any new medical or neurological complaints. She denies nausea or vomiting. She slept well and ate well. OBJECTIVE: GENERAL: Well-developed, well-nourished white female, not in acute distress. VITAL SIGNS: Blood pressure 110/56, respiratory rate 20, pulse 73 and regular, temperature 98, oxygen saturation 98% on room air. HEENT: Normocephalic, atraumatic, otherwise unremarkable. NECK: Supple. Negative for carotid bruit, lymphadenopathy or thyromegaly. LUNGS: Clear to A and P. CARDIOVASCULAR: Regular rhythm, normal S1, S2. There is no S3, S4, murmur. ABDOMEN: Soft. Bowel sounds positive. EXTREMITIES: Negative for cyanosis, clubbing or edema. NEUROLOGIC: Normal mental status and intact cranial nerves. There is no focal motor or sensory deficit. Deep tendon reflexes are symmetric and active without pathology responses. Gait and coordination are normal. LABORATORY DATA: CBC revealed white blood cells of 6.2 thousand, hemoglobin 10.5, hematocrit 31.9, platelet count 241,000. Chemistry revealed sodium of 140, potassium 3.8, chloride 105, CO2 of 27, BUN 9, creatinine 0.9, glucose is 105, calcium is 8.7. Troponin level less than 0.017. Urinalysis is negative. IMPRESSION: 1. Syncope versus seizure. 2. Dehydration, improved. 3. Multiple medical problems including gastroparesis, hyperlipidemia, Yassine's thyroiditis. 4. Rule out peptic ulcer disease. 5. Tobaccoism. RECOMMENDATIONS: 1. We will schedule the patient to have an EEG as outpatient next week. 2. Continue with current management. 3. The patient will have EGD next Tuesday. M Tonie ROTEGA MD DR: NIDHI/kate JOB#: [id number] / [id number]
[2017-12-09] MEDS ORDERED: PANTOPRAZOLE 40 MG TABLET. PO SCH (16:00)
== END 2017-12-08 15:07 | disposition home or self-care (01) ==
LOC: ER 06:35 → 1 SOUTH 08:24 → ER 09:00
PROVIDERS: ADMIT Family Medicine; ATTEND Family Medicine
DX: R55 Syncope and collapse (principal); E06.3 Autoimmune thyroiditis; E03.9 Hypothyroidism, unspecified; K21.9 Gastro-esophageal reflux disease without esophagitis; K44.9 Diaphragmatic hernia without obstruction or gangrene; K31.84 Gastroparesis; F17.210 Nicotine dependence, cigarettes, uncomplicated; E86.0 Dehydration; E78.5 Hyperlipidemia, unspecified; I95.1 Orthostatic hypotension
CPT/HCPCS: 36415; 70450; 71045; 80053; 81001; 82553; 83735; 83880; 84439; 84443; 84484; 85025; 85610; 93005; 93306; 96360; 96361; 99285; G0378; G0379; J7030

== ENCOUNTER → 2018-12-07 | Outpatient (CLI) | payer BC, OTHER ==
[~2018-12-07] MED LIST changes: +IOHEXOL 240 MG/ML 50ML VIAL. ONE; +IOHEXOL 300 MG/ML 75 ML VIAL. IV ONE
--- NOTE | 2018-12-07 13:05 | RAD ---
EXAM: Abdomen and pelvis CT with intravenous contrast. HISTORY: Right lower quadrant pain. TECHNIQUE: Computed tomographic images of the abdomen and pelvis were obtained following the administration of 75 cc Omnipaque 300 intravenous contrast. Multiplanar reformatting was performed. *One or more of the following individualized dose reduction techniques were utilized for this examination: 1. Automated exposure control. 2. Adjustment of the mA and/or kV according to patient size. 3. Use of iterative reconstruction technique. COMPARISON: 06/02/2015. FINDINGS: Evaluation of the lower thorax demonstrates no infiltrate or pleural effusion. There is a large hiatal hernia with intrathoracic positioning of a large portion of the stomach. There is no hepatic lesion. The gallbladder, pancreas, spleen and adrenal glands are unremarkable. The right kidney is unremarkable. There is a stable 1 mm cyst or prominent calyx within the lateral upper mid zone of the left kidney. The urinary bladder is nearly empty. There is no appendicitis. There is a moderate amount of stool throughout the colon. There is distal colonic diverticulosis without evidence of diverticulitis. There are few diverticula within the distal small bowel. The uterus is surgically absent. There is no lymphadenopathy. There is no suspicious osseous lesion. IMPRESSION: 1. Moderate colonic stool. 2. Colonic diverticulosis and distal small bowel diverticulosis. 3. Large hiatal hernia. Electronically signed by: Emma Arora MD (12/07/2018 1:01 PM) [facility]
== END | disposition home or self-care (01) ==
LOC: CT 10:30
PROVIDERS: ATTEND Internal Medicine Gastroenterology
DX: K57.30 Diverticulosis of large intestine without perforation or abscess without bleeding (principal); K57.10 Diverticulosis of small intestine without perforation or abscess without bleeding; K44.9 Diaphragmatic hernia without obstruction or gangrene; K59.09 Other constipation; Z87.891 Personal history of nicotine dependence
CPT/HCPCS: 74177; Q9967

== ENCOUNTER 2019-09-27 04:57 | Emergency (ER) | payer OTHER ==
[~2019-09-27] VITALS: Ht 162.6 cm; Wt 59.0 kg
[~2019-09-27 04:57] MED LIST changes: -IOHEXOL 240 MG/ML 50ML VIAL. ONE; -IOHEXOL 300 MG/ML 75 ML VIAL. IV ONE; +OMEP-229 PO; -OMEP20CA9 PO
--- NOTE | 2019-09-27 05:29 | PHYS DOC ---
Past History Past Medical History: Diverticulitis, GERD, Hypothyroid, P.U.D, Other Additional Past Medical Histor: hiatal hernia, gastroparesis, hashimotos Past Surgical History: Tubal ligation Smoking: Non-smoker Alcohol Use: Occasionally Drug Use: Marijuana Adult General Chief Complaint Chief Complaint: ABDOMINAL PAIN HPI HPI 59-year-old female presents with upper abdominal pain which is been intermittent over the last week. Patient reports it appears worse after eating primarily to epigastric region and then moves to bilateral lower abdominal quadrants. Patient does report some irregular bowels. Reports some constipation which then becomes diarrhea. Patient also reports a "really dark stool". Denies known sick contacts. Reports some associated nausea. Denies vomiting. Reports some subje ctive hot flash. Patient does report history of gastroparesis as well as diverticulitis. Denies trauma. Review of Systems Review of Systems Constitutional: Reports subjective fever/chills Eyes: Denies redness or eye pain HENT: Denies nasal congestion or sore throat Respiratory: Denies cough or shortness of breath Cardiovascular: Denies chest pain or palpitations GI: Reports abdominal pain, diarrhea, constipation, and nausea; denies vomiting : Denies dysuria or hematuria Musculoskeletal: Denies back pain or joint pain Integument: Denies rash or skin lesions Neurologic: Denies headache, focal weakness or sensory changes Complete systems were reviewed and found to be within normal limits, except as documented in this note. Current Medications Current Medications Current Medications Medications (Trade) Dose Ordered Sig/[place] Start Time Stop Time Status Last Admin Dose Admin Famotidine (Pepcid Vial) 20 mg 1X ONCE 09/27/19 06:00 09/27/19 06:01 Ondansetron HCl (Zofran) 4 mg 1X ONCE 09/27/19 06:00 09/27/19 06:01 Sodium Chloride 1,000 ml @ 1,000 mls/hr 1X ONCE 09/27/19 06:00 09/27/19 06:59 Allergies Allergies Allergies Coded Allergies Type Severity Reaction Last Updated Verified No Known Drug Allergies 12/07/17 No Physical Exam Physical Exam Constitutional: Well developed, well nourished, no acute distress, non-toxic appearance HENT: Normocephalic, atraumatic, oropharynx moist Eyes: Conjunctiva normal, no discharge Neck: Normal range of motion, no tenderness, supple Cardiovascular: Heart rate normal, regular rhythm Lungs & Thorax: Bilateral breath sounds clear to auscultation, no wheezing Abdomen: Soft, mild epigastric tenderness on palpation, no rebound tenderness/guarding/distention Skin: Warm, dry, no erythema, no rash Back: No tenderness, no CVA tenderness Extremities: No tenderness, ROM intact, no edema Neurologic: Alert and oriented X 3, no focal deficits noted Psychologic: Affect anxious, judgement normal Current Patient Data Vital Signs Vital Signs Date Time Temp Pulse Resp B/P (MAP) Pulse Ox O2 Delivery O2 Flow Rate FiO2 09/27/19 05:02 97.8 108 16 97 Room Air EKG EKG @0531 NSR at 77bpm, NO ST elevation, QRS 80ms, QT/QTc 368/418ms Radiology/Procedures Radiology/Procedures [] Course & Med Decision Making Course & Med Decision Making Pertinent Labs and Imaging studies reviewed. (See chart for details) Patient presents with one-week history of intermittent abdominal pain primarily to epigastric region with associated nausea. Reports some associated episodes of constipation and diarrhea. Afebrile. Symptomatic treatment provided. IV fluid hydration given. EKG stable. Labs obtained and pending. CT abdomen/pelvis also pending. Sign out given to Dr. Ambrose for further evaluation and final disposition. Discussed current findings and plan with patient and family, who acknowledge understanding and agreement. Dragon Disclaimer Dragon Disclaimer This electronic medical record was generated, in whole or in part, using a voice recognition dictation system. Departure Departure: Impression: Primary Impression: Abdominal pain Disposition: HOME/RESIDENCE PRIOR TO ADM Condition: STABLE Referrals: INEZ MARSHALL MD (PCP) Problem Qualifiers Primary Impression: Abdominal pain Abdominal location: unspecified location Qualified Codes: R10.9 - Unspecified abdominal pain TOMI AARON DO Sep 27, 2019 05:29
[2019-09-27] MEDS: FAMOTIDINE 20 MG/2 ML VIAL IVP ONE (05:32)
[2019-09-27] MEDS: ONDANSETRON PF 4 MG/2 ML VIAL. IVP ONE (05:32)
[2019-09-27] MEDS: IV NORMAL SALINE 1,000ML 1,000 ML IV ONE (05:32)
[2019-09-27] MEDS: KETOROLAC 15 MG/ML VIAL. IVP ONE (05:33)
[2019-09-27 05:39] LABS: BASO # 0.1 x10^3/uL (0.0-0.2); BASO % 1 % (0-3); EOS # 0.1 x10^3/uL (0.0-0.7); EOS % 1 % (0-3); HEMATOCRIT 42.6 % (36.0-47.0); HEMOGLOBIN 13.7 g/dL (12.0-15.5); LYMPH # 3.6 x10^3/uL (1.0-4.8); LYMPH % 38 % (24-48); MEAN CORPUSCULAR HEMOGLOBIN 27 pg (25-35); MEAN CORPUSCULAR HGB CONC 32 g/dL (31-37); MEAN CORPUSCULAR VOLUME 85 fL (79-100); MONO # 0.8 x10^3/uL (0.0-1.1); MONO % 8 % (0-9); NEUT # 4.8 x10^3uL (1.8-7.7); NEUT % 51 % (31-73); PLATELET COUNT 347 x10^3/uL (140-400); RED BLOOD COUNT 5.01 x10^6/uL (3.50-5.40); RED CELL DISTRIBUTION WIDTH 18.7 % (11.5-14.5); WHITE BLOOD COUNT 9.4 x10^3/uL (4.0-11.0)
[2019-09-27 05:44] LABS: BACTERIA,URINE 0 /HPF (0-FEW); BILIRUBIN,URINE NEG (NEG); CLARITY,URINE CLEAR; COLOR,URINE YELLOW; GLUCOSE,URINE NEG (NEG); NITRITE,URINE NEG (NEG); RBC,URINE 0 /HPF (0-2); SQUAMOUS EPITHELIAL CELL,UR FEW /LPF; UROBILINOGEN,URINE 0.2 mg/dL (0.2 mg/dL); WBC,URINE OCC /HPF (0-4)
[2019-09-27 05:47] LABS: ANION GAP 11 (6-14); BLOOD UREA NITROGEN 9 mg/dL (7-20); BUN/CREATININE RATIO 11 (6-20); CALCIUM 9.1 mg/dL (8.5-10.1); CARBON DIOXIDE 27 mmol/L (21-32); CHLORIDE 100 mmol/L (98-107); CREATININE 0.8 mg/dL (0.6-1.0); GFR 73.4; GLUCOSE 98 mg/dL (70-99); POTASSIUM 3.5 mmol/L (3.5-5.1); SODIUM 138 mmol/L (136-145)
[2019-09-27] MEDS: IOHEXOL 300 MG/ML 75 ML VIAL. IV ONE (05:51)
[2019-09-27 06:00] LABS: ALBUMIN 3.9 g/dL (3.4-5.0); ALBUMIN/GLOBULIN RATIO 0.9 (1.0-1.7); ALK PHOS 113 U/L (46-116); ALT (SGPT) 20 U/L (14-59); AST (SGOT) 15 U/L (15-37); LIPASE 85 U/L (73-393); MAGNESIUM 1.7 mg/dL (1.8-2.4); TOTAL BILIRUBIN 0.7 mg/dL (0.2-1.0); TOTAL PROTEIN 8.1 g/dL (6.4-8.2)
[2019-09-27] MEDS ORDERED: CONTRAST GIVEN MC PRN (06:00)
--- NOTE | 2019-09-27 06:05 | EKG ---
[address] [address] Test Date: 2019-09-27 Test Time: 05:31:14 Pat Name: GHADA AGUILA Department: Room: Gender: F [employer]: : 1960 Requested By: TOMI AARON Order Number: [id number] Reading MD: Measurements Intervals [place] Rate: 77 P: 64 OK: 186 QRS: 68 QRSD: 80 T: 64 QT: 368 QTc: 418 Interpretive Statements SINUS RHYTHM QRS(T) CONTOUR ABNORMALITY CONSIDER INFERIOR MYOCARDIAL DAMAGE POSSIBLY ABNORMAL ECG RI6.01 No previous ECG available for comparison
[2019-09-27 06:06] VITALS: BP 120/69
--- NOTE | 2019-09-27 06:14 | RAD ---
CT ABD PELV W/ IV CONTRST ONLY History: Abdominal pain Comparison: 11/29/2018 Technique: After administration of intravenous contrast, helical CT of the abdomen and pelvis was performed from the lung bases through the ischial tuberosities. Coronal and sagittal reconstructions were obtained. 75 mL of Omnipaque 300 were used. One or more of the following dose reduction techniques were utilized: Automated exposure control (AEC), Adjustment of mA and/or kV according to patient size, Use of iterative reconstruction technique such as ASiR, CT scan done according to ALARA and image gently/image wisely Abdomen Findings: The visualized lung bases are clear. The liver, gallbladder, pancreas, spleen, and bilateral adrenal glands are normal. Symmetric renal enhancement. There is no focal renal mass. There is no hydronephrosis. Large hiatal hernia. The visualized loops of small bowel are normal. The visualized loops of large bowel are normal. There is no evidence of bowel obstruction. Appendix is normal. Colonic diverticulosis. There is no free fluid. There is no mesenteric or retroperitoneal adenopathy. The abdominal aorta is normal in caliber. Mild aortoiliac atherosclerotic disease. Pelvis Findings: Urinary bladder is decompressed and demonstrates circumferential bladder wall thickening. No pelvic free fluid. There is no pelvic or inguinal adenopathy. There is no acute bony abnormality. IMPRESSION: 1. Diverticulosis without evidence of acute diverticulosis. 2. Circumferential bladder wall thickening, which could be due to underdistention or potentially cystitis. Consider urinalysis. 3. Large hiatal hernia. Electronically signed by: Seb Grossman MD (09/27/2019 6:11 AM) [id number]
[2019-09-27] MEDS ORDERED: METO10TA81 PO (06:26)
[2019-09-27] MEDS ORDERED: HYOS0.1264 PO (06:26)
== END 2019-09-27 06:36 | disposition home or self-care (01) ==
LOC: ER 04:57
DX: R10.13 Epigastric pain (principal); R19.7 Diarrhea, unspecified; K59.00 Constipation, unspecified; K21.9 Gastro-esophageal reflux disease without esophagitis; E03.9 Hypothyroidism, unspecified; K57.30 Diverticulosis of large intestine without perforation or abscess without bleeding; K44.9 Diaphragmatic hernia without obstruction or gangrene; Z87.11 Personal history of peptic ulcer disease; Z98.51 Tubal ligation status
CPT/HCPCS: 36415; 74177; 80053; 81001; 82553; 83605; 83690; 83735; 84484; 85025; 85610; 85730; 93005; 96361; 96374; 96375; 99285; J1885; J2405; J3490; Q9967; J7030

== ENCOUNTER → 2021-05-12 | Outpatient (CLI) | payer OTHER ==
[~2021-05-12] MED LIST changes: +HYOS0.1264 PO; +METO10TA81 PO; -OMEP-229 PO; +OMEP20CA16 PO
--- NOTE | 2021-05-12 09:22 | RAD ---
EXAM: Lumbar spine, 3 views; left hip, 2 views; bilateral hands, 2 views. HISTORY: Pain. COMPARISON: None. FINDINGS: Lumbar spine: 3 views of the lumbar spine are obtained. There is grade 1 anterolisthesis of L4 and L5 , measuring abdomen. There is mild multilevel endplate remodeling. There is facet arthropathy at the lower lumbar levels. There is no fracture. Left hip: 2 views of the left hip are obtained. There is no fracture, dislocation or subluxation. The femoral head is normal in configuration. Bilateral hands: 2 views of both hands are obtained. There is no fracture, dislocation or subluxation . There are tiny corticated ossicles adjacent to the bilateral second distal interphalangeal joints, likely degenerative or the sequela of remote injury. IMPRESSION: 1. Multilevel level degenerative change involving the lumbar spine, primarily the lower lumbar levels . 2. No acute osseous finding. Electronically signed by: Emma Arora MD (05/12/2021 9:20 AM) [id number]
== END ==
LOC: RAD 08:43
PROVIDERS: ATTEND Family Medicine
DX: Z02.71 Encounter for disability determination (principal); M47.816 Spondylosis without myelopathy or radiculopathy, lumbar region; M43.16 Spondylolisthesis, lumbar region
CPT/HCPCS: 72100; 73120; 73502